=== PATIENT | female | born 1995 | race Caucasian/White ===

== ENCOUNTER 2016-09-14 23:34 | Emergency (ER) | payer OTHER, MEDICAID ==
[2016-09-14 23:45] VITALS: TEMP 97.9
[2016-09-14] MEDS ORDERED: NS 1,000 ML IV ONE (23:46)
[2016-09-14] MEDS ORDERED: HYDROmorphONE/DILAUDID 1 MG/ML SYR IVP ONE (23:58)
--- NOTE | 2016-09-14 23:58 | EDPHY ---
H & P Stated Complaint: RLQ pain + nausea since this afternoon, diarrhea all month - Personal History LMP (Females 10-55): Now Current Tetanus/Diphtheria Vaccine: Unsure Current Tetanus Diphtheria and Acellular Pertussis (TDAP): Unsure - Medical/Surgical History Hx Asthma: Yes Hx Chronic Respiratory Disease: No Hx Diabetes: No Hx Cardiac Disease: No Hx Renal Disease: No Hx Cirrhosis: No Hx Alcoholism: No Hx HIV/AIDS: No Hx Splenectomy or Spleen Trauma: No Other PMH: RA, depression, GERD, migraines w aura, TMJ, panic attacks, anxiety, ovarian cysts - Social History Smoking Status: Never smoked Time Seen by Provider: 09/14/16 23:46 HPI/ROS: Chief complaint: Abdominal pain History of present illness: This is a 21-year-old female who presents to the emergency department for evaluation of abdominal pain. Patient reports pain in the right, lower aspect of her abdomen. It is radiating toward her back. She has had associated nausea without vomiting. Patient has had ongoing problems with abdominal pain for the last few months. She reports having been seen in [facility] multiple times. She states she has been diagnosed with multiple ovarian cysts. This does not feel similar to the cysts she has had in the past. She also reports she has had diarrhea intermittently for the last month. No reported blood in it. She denies precipitating factors. Denies alleviating factors. Denies other associated signs or symptoms. Review of systems: A 10 point review of systems was obtained and other than described above was negative (Ras Lal) - Physical Exam Exam: General Appearance: Alert, no distress. Eyes: Pupils equal and round no pallor or injection. ENT, Mouth: Mucous membranes moist. Respiratory: There are no retractions, lungs are clear to auscultation. Cardiovascular: Regular rate and rhythm. Gastrointestinal: Abdomen is soft and non tender, no masses, bowel sounds normal. Neurological: Alert and oriented. Strength and sensation intact and symmetrical. Skin: Warm and dry, no rashes. Musculoskeletal: Neck is supple non tender. Extremities are symmetrical, full range of motion. Psychiatric: Patient is oriented X 3, there is no agitation. (Ras Lal) Constitutional: Initial Vital Signs Temperature (C) 36.6 C 09/14/16 23:42 Heart Rate 97 09/14/16 23:42 Respiratory Rate 16 09/14/16 23:42 Blood Pressure 102/70 09/14/16 23:42 O2 Sat (%) 97 09/14/16 23:42 O2 Delivery Mode Room Air O2 (L/minute) 2 Allergies/Adverse Reactions: infliximab [From Remicade] Allergy (Verified 09/14/16 23:37) Latex, Natural Rubber Allergy (Verified 09/14/16 23:37) Home Medications: Medication Instructions Recorded ACTEMRA 09/14/16 Baclofen 09/14/16 Diclofenac Sodium 09/14/16 Gabapentin 09/14/16 Hydrocodone Bit/Acetaminophen 09/14/16 Lexapro 09/14/16 Omeprazole 09/14/16 Topamax 09/14/16 Toradol 09/14/16 Wellbutrin Sr 09/14/16 traMADol 09/14/16 traZODone 09/14/16 Medical Decision Making ED Course/Re-evaluation: CT scan of the abdomen pelvis without IV contrast The results of the study are negative for acute inflammatory process specifically normal appendix, no free fluid, no acute intra-abdominal inflammation The study was read by Dr. Mckeon I viewed the images myself on the PACS system. [id number]; re-evaluation at this time this patient is resting comfortably no acute distress, blood work, CT scan reviewed nothing acute visualized on CT scan and blood work is reassuring. Re-examination of her abdomen at this time is soft nontender no guarding or peritoneal signs she is not vomiting. She is agreeable for discharge. She p.o. challenge well. She does understand strict return precautions understands return emergency room if she develops any worsening symptoms this includes abdominal pain, fever, vomiting (Bryce Ziegler) Patient presents to the emergency department for evaluation of abdominal pain. Patient is nontoxic. She is afebrile and vital signs are stable. Physical exam is unremarkable including benign. Care of patient turned over to my attending physician Dr. Bryce Ziegler at end of shift. (Ras Lal) - Data Points Laboratory Results: Laboratory Results 09/15/16 00:40 09/14/16 00:25 Medications Given: Discontinued Medications Hydromorphone HCl (Dilaudid) 1 mg IVP EDNOW ONE Stop: 09/14/16 23:59 Last Admin: 09/15/16 00:45 Dose: 1 mg Sodium Chloride (Ns) 1,000 mls @ 0 mls/hr IV ONCE ONE PRN Reason: Wide Open Stop: 09/14/16 23:47 Last Admin: 09/15/16 00:48 Dose: 1,000 mls Departure - Departure Disposition: Home, Routine, Self-Care Clinical Impression: Abdominal pain Condition: Good Instructions: Acute Abdominal Pain (ED) Additional Instructions: 1.Stay well-hydrated. 2. eat a bland diet for the next 24-48 hours. 3.Return to the emergency room if he develops any worsening symptoms includes worsening abdominal pain, fever, vomiting. 4. your CT scan this evening is normal. your blood work is normal. Referrals: Brianna Ledbetter PA [Primary Care Provider] - As per Instructions
[2016-09-15 00:47] LABS: COLOR PALE YELLOW; LEUKOCYTE ESTERASE,URINE NEGATIVE (NEGATIVE); NITRITE,URINE NEGATIVE (NEGATIVE)
[2016-09-15 01:21] LABS: BHCG-QUALITATIVE NEGATIVE; MONO TEST NEGATIVE (NEGATIVE)
[2016-09-15 01:31] LABS: % IMMATURE GRANULYOCYTES 0.2 % (0.0-1.1); ABSOLUTE IMMATURE GRANULOCYTES 0.01 10^3/uL (0.00-0.10); ADD DIFF? NO; ADD MORPH? NO; ADD SCAN? NO; ATYPICAL LYMPHOCYTE FLAG 20 (0-99); FRAGMENT RBC FLAG 0 (0-99); HEMATOCRIT 38.4 % (38.0-47.0); HEMOGLOBIN 13.3 g/dL (12.6-16.3); LEFT SHIFT FLG 0 (0-99); LIPEMIA HEMOLYSIS FLAG 90 (0-99); MEAN CELL HEMOGLOBIN 30.6 pg (27.9-34.1); MEAN CELL HEMOGLOBIN CONCENTR. 34.6 g/dL (32.4-36.7); MEAN CELL VOLUME 88.3 fL (81.5-99.8); MEAN PLATELET VOLUME 9.4 fL (8.7-11.7); PLATELET CLUMPS FLAG 10 (0-99); PLATELET COUNT 252 10^3/uL (150-400); RED BLOOD CELL COUNT 4.35 10^6/uL (4.18-5.33); RED CELL DISTRIBUTION WIDTH 11.8 % (11.5-15.2)
[2016-09-15 01:50] LABS: ALANINE AMINOTRANSFERASE 38 IU/L (9-52); ALBUMIN 4.1 g/dL (3.5-5.0); ALKALINE PHOSPHATASE 51 IU/L (38-126); ANION GAP 12 mEq/L (8-16); ASPARTATE AMINOTRANSFERASE 23 IU/L (14-46); BILIRUBIN,TOTAL 0.4 mg/dL (0.1-1.4); BILIRUBIN-CONJUGATED 0.2 mg/dL (0.0-0.5); BILIRUBIN-UNCONJUGATED 0.2 mg/dL (0.0-1.1); CALCIUM 9.5 mg/dL (8.5-10.4); CARBON DIOXIDE 18 mEq/l (22-31); CHLORIDE 113 mEq/L (97-110); CREATININE 0.8 mg/dL (0.6-1.0); GLOMERULAR FILTRATION RATE > 60; GLUCOSE 83 mg/dL (70-100); POTASSIUM 4.3 mEq/L (3.5-5.2); SODIUM 143 mEq/L (134-144); TOTAL PROTEIN 6.9 g/dL (6.3-8.2)
[2016-09-15 02:50] VITALS: BP 125/70; PULSE 72; RESP 18; O2SAT 94
--- NOTE | 2016-09-15 14:32 | CT ---
CT Scan of the Urinary Tract (Abdomen and Pelvis Without Contrast) September 15, 2016 Indication: Right flank pain. Technique: Multidetector helical CT imaging was performed from the kidneys to the urinary bladder wi thout contrast. Dose reduction techniques were utilized. Findings: Normal kidneys. No hydronephrosis, nephrolithiasis, hydroureter, or ureteral calculi. The u rinary bladder is normal. The uterus and ovaries are normal. No free fluid or ovarian cyst. The appendix is well visualized and normal. Normal bowel pattern. No obstruction or adynamic ileus. No pneumoperitoneum, lymphadenopathy, or mass. The noncontrast liver, spleen, pancreas, gallbladder, adrenal glands, and abdominal aorta are normal. Lung bases are clear. No bone lesions. Impression: 1. Normal appendix. 2. No hydroureteronephrosis, nephrolithiasis, or ureteral calculi. 3. No evidence of ovarian cyst or free fluid. The study was performed as an emergency on-call case and discussed by telephone with Dr. Bryce yu at 2:30 a.m. The final interpretation is concordant with the original communication. Attention: This CT examination is specifically designed to evaluate patients who are clinically susp ected of having acute obstructive uropathy. This examination does not use radiographic contrast, and as such, provides only a limited evaluation of the abdomen, pelvis, and retroperitoneum. If there is further clinical suspicion for pathological conditions other than obstructive uropathy, a complete CT evaluation of the abdomen and pelvis utilizing intravenous, oral, and rectal contrast should be c onsidered.
== END 2016-09-15 02:50 | disposition home or self-care (01) ==
DX: R10.31 Right lower quadrant pain (principal); J45.909 Unspecified asthma, uncomplicated; Z91.040 Latex allergy status
CPT/HCPCS: 96374; J1170

== ENCOUNTER 2016-11-10 16:17 | Observation (INO) | payer OTHER, MEDICAID ==
--- NOTE | 2016-11-10 16:45 | EDPHY ---
H & P Time Seen by Provider: 11/10/16 16:37 HPI/ROS: CHIEF COMPLAINT: Right upper quadrant pain HISTORY OF PRESENT ILLNESS: The patient is a 21 year old female with rheumatoid arthritis presenting with ongoing right upper quadrant pain. The patient has had right upper quadrant discomfort for the past 3 months. She recently had a HIDA scan that demonstrated a non-functioning gallbladder. She is scheduled to have a cholecystectomy in 3 days. Over the past 24 hours she has not been able to eat or drink due to the pain. She has associated nausea, no vomiting or fever. The patient usually takes hydrocodone for pain. REVIEW OF SYSTEMS: A comprehensive 10 point review of systems is otherwise negative aside from elements mentioned in the history of present illness. Past Medical/Surgical History: RA, migraines, depression, GERD, TMJ, Anxiety, Ovarian cysts. Social History: Parents at bedside. Smoking Status: Never smoked Physical Exam: General Appearance: Alert, depressed Eyes: Pupils equal and round, no conjunctival pallor ENT, Mouth: Mucous membranes moist Neck: Normal inspection Respiratory: Lungs are clear to auscultation Cardiovascular: Regular rate and rhythm Gastrointestinal: Soft, Right upper quadrant tenderness Neurological: A&O, nonfocal exam Skin: Warm and dry, no rash Extremities: Nontender, no pedal edema Psychiatric: Flat affect. Depressed mood. Constitutional: Initial Vital Signs Temperature (C) 36.6 C 11/10/16 16:21 Heart Rate 95 11/10/16 16:21 Respiratory Rate 18 11/10/16 16:21 Blood Pressure 95/69 L 11/10/16 16:21 O2 Sat (%) 95 11/10/16 16:21 O2 Delivery Mode Room Air Allergies/Adverse Reactions: infliximab [From Remicade] Allergy (Verified 11/10/16 16:20) Latex, Natural Rubber Allergy (Verified 11/10/16 16:20) Home Medications: Medication Instructions Recorded Baclofen [Baclofen 10 mg (*)] 10 mg PO HS 11/10/16 Bupropion HCl [Wellbutrin Xl] 300 mg PO HS 11/10/16 Diclofenac Sodium [Voltaren 75 MG 75 mg PO HS 11/10/16 (*)] Escitalopram Oxalate [Lexapro] 30 mg PO HS 11/10/16 Gabapentin [Neurontin 300 MG (*)] 300 mg PO BID 11/10/16 Hydrocodone/Acetaminophen [[place] 1 each PO Q6 PRN 11/10/16 5/325 (*)] Omeprazole 40 mg PO HS 11/10/16 Ranitidine HCl [Zantac] 300 mg PO HS 11/10/16 Topiramate [Topiramate] 100 mg PO HS 11/10/16 traMADol [Ultram 50 mg (*)] 50 - 100 mg PO Q6 PRN 11/10/16 traZODone [traZODONE 100MG (*)] 100 - 200 mg PO HS 11/10/16 Medical Decision Making ED Course/Re-evaluation: This patient presents worsening right upper quadrant pain and prior diagnosis of biliary colic. I reviewed her past medical record. IV was established. The patient received Dilaudid, Zofran, and fluids. 1730: I reassessed the patient. She is feeling improved. Abdominal exam is unchanged. 1830: I reassessed the patient. She is now crying in pain. Abdominal exam unchanged. Plan to admit for abdominal pain. 184: I consulted with Dr. Mcdowell who will consult on the patient. 0: Dr. Rhodes, Hospitalist, accepts the patient for admission. 2009: Dr. Mcdowell saw the patient in the ED. NPO after midnight. Will reassess in the morning. Differential Diagnosis: Differential diagnosis includes though it is not limited to appendicitis, cholecystitis, diverticulitis, pyelonephritis, bowel perforation, small bowel obstruction. - Data Points Laboratory Results: Laboratory Results 11/10/16 16:55 11/10/16 16:55 11/10/16 11/10/16 11/10/16 16:55 16:55 16:55 WBC 3.66 10^3/uL L 10^3/uL (3.80-9.50) RBC 4.51 10^6/uL 10^6/uL (4.18-5.33) Hgb 13.5 g/dL g/dL (12.6-16.3) Hct 39.6 % % (38.0-47.0) MCV 87.8 fL fL (81.5-99.8) MCH 29.9 pg pg (27.9-34.1) MCHC 34.1 g/dL g/dL (32.4-36.7) RDW 11.9 % % (11.5-15.2) Plt Count 267 10^3/uL 10^3/uL (150-400) MPV 9.7 fL fL (8.7-11.7) Neut % (Auto) 38.2 % L % (39.3-74.2) Lymph % (Auto) 48.1 % H % (15.0-45.0) [place]cock % (Auto) 10.4 % % (4.5-13.0) Eos % (Auto) 1.9 % % (0.6-7.6) Baso % (Auto) 1.1 % % (0.3-1.7) Nucleat RBC Rel Count 0.0 % % (0.0-0.2) Absolute Neuts (auto) 1.40 10^3/uL L 10^3/uL (1.70-6.50) Absolute Lymphs (auto) 1.76 10^3/uL 10^3/uL (1.00-3.00) Absolute Monos (auto) 0.38 10^3/uL 10^3/uL (0.30-0.80) Absolute Eos (auto) 0.07 10^3/uL 10^3/uL (0.03-0.40) Absolute Basos (auto) 0.04 10^3/uL 10^3/uL (0.02-0.10) Absolute Nucleated RBC 0.00 10^3/uL 10^3/uL (0-0.01) Immature Gran % 0.3 % % (0.0-1.1) Immature Gran # 0.01 10^3/uL 10^3/uL (0.00-0.10) Sodium 140 mEq/L mEq/L (134-144) Potassium 4.1 mEq/L mEq/L (3.5-5.2) Chloride 114 mEq/L H mEq/L (97-110) Carbon Dioxide 18 mEq/l L mEq/l (22-31) Anion Gap 8 mEq/L mEq/L (8-16) BUN 8 mg/dL mg/dL (7-23) Creatinine 0.8 mg/dL mg/dL (0.6-1.0) Estimated GFR > 60 Glucose 93 mg/dL mg/dL (70-100) Calcium 9.4 mg/dL mg/dL (8.5-10.4) Total Bilirubin 0.4 mg/dL mg/dL (0.1-1.4) Conjugated Bilirubin 0.3 mg/dL mg/dL (0.0-0.5) Unconjugated Bilirubin 0.1 mg/dL mg/dL (0.0-1.1) AST 18 IU/L IU/L (14-46) ALT 41 IU/L IU/L (9-52) Alkaline Phosphatase 50 IU/L IU/L (38-126) Total Protein 7.0 g/dL g/dL (6.3-8.2) Albumin 4.3 g/dL g/dL (3.5-5.0) Lipase 455.0 IU/L H IU/L (23-300) Beta HCG, Qual NEGATIVE Medications Given: Discontinued Medications Hydromorphone HCl (Dilaudid) 0.5 mg IVP EDNOW ONE Stop: 11/10/16 16:48 Last Admin: 11/10/16 17:06 Dose: 0.5 mg Hydromorphone HCl (Dilaudid) 0.5 mg IVP EDNOW ONE Stop: 11/10/16 18:29 Last Admin: 11/10/16 18:47 Dose: 0.5 mg Sodium Chloride (Ns) 1,000 mls @ 0 mls/hr IV ONCE ONE PRN Reason: Wide Open Stop: 11/10/16 16:48 Last Admin: 11/10/16 16:58 Dose: 1,000 mls Sodium Chloride (Ns) 1,000 mls @ 0 mls/hr IV ONCE ONE PRN Reason: Wide Open Stop: 11/10/16 16:49 Last Admin: 11/10/16 17:06 Dose: 1,000 mls Ondansetron HCl (Zofran) 4 mg IVP EDNOW ONE Stop: 11/10/16 16:48 Last Admin: 11/10/16 17:06 Dose: 4 mg Departure - Departure Disposition: [facility] Clinical Impression: Abdominal pain Qualifiers: Abdominal location: right lower quadrant Qualified Code(s): R10.31 - Right lower quadrant pain Condition: Good Report Scribed for: Sharda Mcdermott Report Scribed by: Sydni Osborne Date of Report: 11/10/16 Time of Report: 16:45 Physician Review and Approval Statement: 11/10/16 16:45 Portions of this note were transcribed by a medical sociologist. I personally performed the history, physical exam, and medical decision-making; and confirmed the accuracy of the information in the transcribed note.
[2016-11-10] MEDS ORDERED: HYDROmorphONE/DILAUDID 1 MG/ML SYR IVP ONE ×2 (16:47→18:28)
[2016-11-10] MEDS ORDERED: ONDANSETRON 4 MG/2 ML VIAL IVP ONE (16:47)
[2016-11-10] MEDS ORDERED: NS 1,000 ML IV ONE ×2 (16:47→16:48)
[2016-11-10 17:08] LABS: % IMMATURE GRANULYOCYTES 0.3 % (0.0-1.1); ABSOLUTE IMMATURE GRANULOCYTES 0.01 10^3/uL (0.00-0.10); ADD DIFF? NO; ADD MORPH? NO; ADD SCAN? NO; ATYPICAL LYMPHOCYTE FLAG 10 (0-99); FRAGMENT RBC FLAG 0 (0-99); HEMATOCRIT 39.6 % (38.0-47.0); HEMOGLOBIN 13.5 g/dL (12.6-16.3); LEFT SHIFT FLG 0 (0-99); LIPEMIA HEMOLYSIS FLAG 90 (0-99); MEAN CELL HEMOGLOBIN 29.9 pg (27.9-34.1); MEAN CELL HEMOGLOBIN CONCENTR. 34.1 g/dL (32.4-36.7); MEAN CELL VOLUME 87.8 fL (81.5-99.8); MEAN PLATELET VOLUME 9.7 fL (8.7-11.7); PLATELET CLUMPS FLAG 10 (0-99); PLATELET COUNT 267 10^3/uL (150-400); RED BLOOD CELL COUNT 4.51 10^6/uL (4.18-5.33); RED CELL DISTRIBUTION WIDTH 11.9 % (11.5-15.2)
[2016-11-10 17:24] LABS: ALANINE AMINOTRANSFERASE 41 IU/L (9-52); ALBUMIN 4.3 g/dL (3.5-5.0); ALKALINE PHOSPHATASE 50 IU/L (38-126); ANION GAP 8 mEq/L (8-16); ASPARTATE AMINOTRANSFERASE 18 IU/L (14-46); BILIRUBIN,TOTAL 0.4 mg/dL (0.1-1.4); BILIRUBIN-CONJUGATED 0.3 mg/dL (0.0-0.5); BILIRUBIN-UNCONJUGATED 0.1 mg/dL (0.0-1.1); CALCIUM 9.4 mg/dL (8.5-10.4); CARBON DIOXIDE 18 mEq/l (22-31); CHLORIDE 114 mEq/L (97-110); CREATININE 0.8 mg/dL (0.6-1.0); GLOMERULAR FILTRATION RATE > 60; GLUCOSE 93 mg/dL (70-100); POTASSIUM 4.1 mEq/L (3.5-5.2); SODIUM 140 mEq/L (134-144)
--- NOTE | 2016-11-10 21:28 | GCON ---
DATE OF CONSULTATION: 11/10/2016 CHIEF COMPLAINT: Abdominal pain. HISTORY OF PRESENT ILLNESS: This is a 21-year-old female with an extensive past medical history. Sam stover, she was evaluated by my partner, Dr. Jacque Terry, in clinic for possible biliary colic versu s cholecystitis. At any rate, the patient was subsequently signed up for surgery this coming . The patient presented to the emergency department stating that ever since her initial consulta tion, she has had low-grade abdominal pain consistent with previous, acutely worsening over the last 48 hours. The patient states that the pain can be all over the place, can be triggered by things s uch as laughing, moving, occasionally food, and that is why she prompted her presentation here today . She states that she has been able to keep down some things. She did eat a normal meal last night , although having little appetite, was able to keep it down. She denies having fevers or chills. E ndorses nausea. States that her pain is right upper quadrant with radiation to the back, occasional ly radiating to the epigastrium, and can be 10/10 in intensity at its worst. She denies having any other symptoms, and on my presentation, has no other complaints. PAST MEDICAL HISTORY: Extensive severe depression, juvenile rheumatoid arthritis. PAST SURGICAL HISTORY: None. CURRENT MEDICATIONS: Please see medical reconciliation for full list. Briefly, the patient takes a long-acting antirheumatic, as she gets infusions for every 4 weeks. ALLERGIES: Infliximab, latex, and natural rubber. REVIEW OF SYSTEMS: A full 10-point review was performed, and unless explicitly stated above, is oth erwise negative. PHYSICAL EXAMINATION: VITAL SIGNS: Temperature 36.6, blood pressure 100/66, heart rate 63, and she is 93% on room air. GENERAL: She is alert, quiet, in no acute distress. CV: She has a regular r ate and rhythm. LUNGS: Clear to auscultation. ABDOMEN: Obese. Minimally tender to palpation in the right upper quadrant without Anne sign. No rebound tenderness or guarding. EXTREMITIES: War m. LABORATORY DATA: White blood cell count is low at 3000, with low absolute neutrophil count at 1.4. Her chemistries are, for the most part, unremarkable, with the exception of an elevated lipase at 4 55. Imaging was not performed, but imaging done previously to now includes a right upper quadrant ultras ound, which is negative for stones, gallbladder wall thickening, pericholecystic fluid, or common bi le duct enlargement. In addition, she had a HIDA scan also performed on an outpatient basis, which showed normal gallblad [place] filling, and excellent ejection fraction at 88%. She did, however, have pain with stimulant inj ection. ASSESSMENT AND PLAN: A 21-year-old female, with extensive past medical history, now presenting with acute worsening abdominal pain. I did discuss my concerns with the patient again today, as they we re previously discussed by my partner, Dr. Terry, in the clinic. I would like to see how she does o vernight, in an effort to get her white blood cell count up to a normal level, which I feel would be helpful for surgery. In addition, I do feel that her mild pancreatitis will resolve with some gent le fluid hydration overnight as well. We will plan to re-evaluate her in the morning. If she aston nues to have fairly severe pain, we will likely plan to expedite her trip to the operating room for a cholecystectomy, and if her pain appears resolved and she does okay, likely hold off for her origi nal surgical date scheduled for Friday, as the original plan and timing was dependent upon her be ing off her long-acting antirheumatic for a significant amount of time, so that she had the capabili ty to heal her surgical site. We will plan to follow along with you. Appreciate medical admission. Thank you very much. /[id number]/MODL
[2016-11-10] MEDS ORDERED: ONDANSETRON DISINTEGRATING 4 MG TAB PO PRN (21:42)
[2016-11-10] MEDS ORDERED: ACETAMINOPHEN 325 MG TAB PO PRN (21:42)
[2016-11-10] MEDS ORDERED: HYDROCODONE/APAP 5/325 TAB PO PRN (21:43)
[2016-11-10] MEDS ORDERED: traMADol 50 MG TAB PO PRN (21:44)
[2016-11-10] MEDS ORDERED: D5W 1/2 NS W/ 20 KCl/L 1,000 ML IV SCH (21:45)
--- NOTE | 2016-11-10 22:15 | GHP ---
DATE OF ADMISSION: 11/10/2016 CHIEF COMPLAINT: Abdominal pain. HISTORY OF PRESENT ILLNESS: This is a 21-year-old female who has been having abdominal pain for the last several months. It is in right upper quadrant. There has been some associated nausea. Not n ecessarily related to meals. She has undergone extensive workup with Gastroenterology including end oscopy, CT scan, and HIDA scan. She did develop pain with the CCK infusion. There was a plan by Dr Carmen Terry to do a laparoscopic cholecystectomy. She does also have a history of rheumatoid arthritis, and there was some talk about how to time surgery. She has been having worsening pain, especially over the last several days, and came to the emergency department. She has not been having any fevers or chills. She has had decreased appetite and p.o. intake. REVIEW OF SYSTEMS: A 10-point review of systems was obtained and other than stated, was negative. PAST MEDICAL HISTORY: 1. Juvenile rheumatoid arthritis the last 11 years. She gets a disease modification infusion once a month. 2. TMJ, and she is actually scheduled for surgery for that at some point. 3. Depression. MEDICATIONS: Reviewed. SOCIAL HISTORY: No smoking or alcohol. Lives with her parents. FAMILY HISTORY: Multiple autoimmune diseases in the family including lupus. Her sister has juvenil e rheumatoid arthritis as well. PHYSICAL EXAMINATION: VITAL SIGNS: Afebrile, blood pressure is 106/77, heart rate 84, oxygen satur ation 96% on room air. GENERAL: The patient is well developed, no apparent distress. HEENT: Kylie cteric sclerae. Extraocular movements intact. Moist mucous membranes. NECK: Supple. No thyromeg rahat. LUNGS: Good effort. Clear to auscultation bilaterally. CARDIOVASCULAR: Regular rate and rh ythm. No murmurs or gallops. ABDOMEN: Positive bowel sounds. Soft. Some mild right upper quadra nt tenderness. No rebound or guarding. EXTREMITIES: No clubbing, cyanosis, or edema. SKIN: With out rash. Warm, dry, intact. NEUROLOGIC: Alert and oriented x3. Moving all 4 extremities equally . PSYCHIATRIC: Normal mood and affect. LABORATORY DATA: White blood cell count is a little low at 3.6, hemoglobin 13, platelets are 267. Sodium 140, potassium 4.1, BUN 8, creatinine 0.8. LFTs are normal. Lipase is slightly elevated at 455. ASSESSMENT AND PLAN: This is a 21-year-old female with a history of abdominal pain thought possibly to be due to biliary colic. She is scheduled for laparoscopic cholecystectomy on Friday. She p resents with worsening abdominal pain. 1. Possible biliary colic. Surgery has seen the patient, and is considering moving up the surgery date. 2. Mild pancreatitis. This could be due to just patient not eating well. We will continue to van tor lipase. 3. Juvenile rheumatoid arthritis. 4. Depression. We will continue medications. 5. Admission. Patient will be admitted under full admission status, as she most likely will get a laparoscopic cholecystectomy done in the hospital. /[id number]/MODL
[2016-11-10] MEDS: HYDROmorphONE/DILAUDID 1 MG/ML SYR IVP PRN (22:44)
[2016-11-11 06:06] LABS: % IMMATURE GRANULYOCYTES 0.2 % (0.0-1.1); ABSOLUTE IMMATURE GRANULOCYTES 0.01 10^3/uL (0.00-0.10); ADD DIFF? NO; ADD MORPH? NO; ADD SCAN? NO; ATYPICAL LYMPHOCYTE FLAG 10 (0-99); FRAGMENT RBC FLAG 0 (0-99); HEMATOCRIT 36.7 % (38.0-47.0); HEMOGLOBIN 12.3 g/dL (12.6-16.3); LEFT SHIFT FLG 0 (0-99); LIPEMIA HEMOLYSIS FLAG 80 (0-99); MEAN CELL HEMOGLOBIN 30.4 pg (27.9-34.1); MEAN CELL HEMOGLOBIN CONCENTR. 33.5 g/dL (32.4-36.7); MEAN CELL VOLUME 90.8 fL (81.5-99.8); PLATELET CLUMPS FLAG 0 (0-99); PLATELET COUNT 231 10^3/uL (150-400); RED BLOOD CELL COUNT 4.04 10^6/uL (4.18-5.33); RED CELL DISTRIBUTION WIDTH 11.9 % (11.5-15.2)
[2016-11-11 06:12] LABS: ANION GAP 7 mEq/L (8-16); CALCIUM 8.4 mg/dL (8.5-10.4); CARBON DIOXIDE 19 mEq/l (22-31); CHLORIDE 116 mEq/L (97-110); CREATININE 0.7 mg/dL (0.6-1.0); GLOMERULAR FILTRATION RATE > 60; GLUCOSE 91 mg/dL (70-100); POTASSIUM 3.7 mEq/L (3.5-5.2); SODIUM 142 mEq/L (134-144)
[2016-11-11] MEDS: ONDANSETRON 4 MG/2 ML VIAL IVP PRN ×2 (08:02→12:05)
[2016-11-11] MEDS: HYDROmorphONE/DILAUDID 1 MG/ML SYR IVP PRN ×2 (08:03→11:08)
[2016-11-11] MEDS ORDERED: OXYCODONE/APAP 5/325 TAB PO PRN (08:23)
--- NOTE | 2016-11-11 08:35 | SOAPPROG ---
SOAP Progress Note Assessment/Plan: Assessment/Plan Cele feels better this AM, she has gotten some pain medications but has had no nausea overnight. Discussed case with Dr Kirti Avendano who once again re- iterated that timing of reba case was important to allow for complete clearing of her anti-rheumatics prior to OR. Given her favorable exam and and Sx this AM would favor feeding with plans for d/c later today so that she can keep her scheduled outpatient lap nolan on . 11/11/16 08:32 Subjective: Feeling a little better, no nausea Objective: Vital Signs Temp Pulse Resp BP Pulse Ox 36.8 C 84 16 111/78 96 11/11/16 07:45 11/11/16 07:45 11/11/16 07:45 11/11/16 07:45 11/11/16 07:45 Laboratory Results 11/11/16 05:05 11/11/16 05:05 11/10/16 11/11/16 11/12/16 05:59 05:59 05:59 Intake Total 3200 Balance 3200 ICD10 Worksheet Patient Problems: Problems Problem Status Onset Abdominal pain Acute
[2016-11-11] MEDS ORDERED: GABAPENTIN 300 MG CAP PO SCH (09:00)
[2016-11-11 12:05] VITALS: BP 83/53; PULSE 93; RESP 18; TEMP 98; O2SAT 93
[2016-11-11] MEDS ORDERED: BACLOFEN 10 MG TAB PO SCH (21:00)
[2016-11-11] MEDS ORDERED: TOPIRAMATE 100 MG TAB PO SCH (21:00)
[2016-11-11] MEDS ORDERED: ESCITALOPRAM OXALATE 10 MG TAB PO SCH (21:00)
[2016-11-11] MEDS ORDERED: traZODone 100 MG TAB PO SCH (21:00)
[2016-11-11] MEDS ORDERED: PANTOPRAZOLE SODIUM 40 MG TAB PO SCH (21:00)
[2016-11-11] MEDS ORDERED: buPROPion XL 150 MG TAB PO SCH (21:00)
[2016-11-11] MEDS ORDERED: FAMOTIDINE 20 MG TAB PO SCH (21:00)
--- NOTE | 2016-11-11 22:13 | GDS ---
DISCHARGE DIAGNOSES: 1. Biliary colic. 2. Juvenile rheumatoid arthritis. 3. Chronic immunosuppression. CONSULTANTS: Dr. Moises Mcdowell, General Surgery. HISTORY: For details, gabe see the history and physical dated November 10, 2016. In brief, the patien maribell is a 21-year-old female with a history of JRA who has experienced right upper quadrant pain for th e past 3 months. She was found to have an abnormal HIDA scan and was scheduled for an elective chol ecystectomy on November 13, 2016. However, she has had increased pain over the past 24 hours, difficult y tolerating oral intake, with associated nausea but no vomiting or fevers. She was admitted to the hospital for further evaluation. HOSPITAL COURSE: The patient was admitted to the medical-surgical unit. She received IV fluids for hydration. She did have a mild elevation of her lipase of 455. Her pain was treated with Percocet . She was able to tolerate regular food without vomiting the following morning. Surgery consult wa s obtained and felt she was safe for discharge home with plan to proceed with her outpatient cholecy stectomy in 2 days. It was preferred to delay her surgery until her scheduled date due to her immun osuppressive therapy which has been on hold in hopes of improving her immune response prior to surge ry. Her white blood cell count was slightly low on arrival, although this normalized the following morning. DISPOSITION: Patient is discharged home in stable condition. FOLLOWUP: Patient has a scheduled elective cholecystectomy on Friday, november 13, 2016, and she lillian l follow up with her primary care provider, Dianna Man, as needed. Follow up for elective chol ecystectomy as I stated, with Dr. Alisha Terry. DISCHARGE MEDICATIONS: Please see [facility] for complete updated outpatient medication list. Contin ue outpatient medications as prescribed. New medications on discharge include Percocet 5/325 one p. o. q.6 hours p.r.n. #10, no refills, and Zofran 4 mg p.o. q.6 hours #20, no refills. /[id number]/MODL
[2016-11-12 22:16] LABS: CELIAC DISEASE INTERPRETATION See Comments; IMMUNOGLOBULIN A CELIAC 220 mg/dL (61 - 356)
== END 2016-11-11 12:55 | disposition home or self-care (01) ==
LOC: F1N 20:42
PROVIDERS: ADMIT Internal Medicine; ATTEND Internal Medicine
DX: K80.50 Calculus of bile duct without cholangitis or cholecystitis without obstruction (principal); M08.00 Unspecified juvenile rheumatoid arthritis of unspecified site; D89.9 Disorder involving the immune mechanism, unspecified; K21.9 Gastro-esophageal reflux disease without esophagitis; F41.9 Anxiety disorder, unspecified; F32.9 Major depressive disorder, single episode, unspecified; Z91.040 Latex allergy status
CPT/HCPCS: G0378 ×2; 82784-90; 83516-90; 96374; J1170; J2405

== ENCOUNTER 2017-07-27 04:45 | Emergency (ER) | payer OTHER, MEDICAID ==
[2017-07-27 04:54] VITALS: RESP 16; TEMP 97.5; O2SAT 96
[2017-07-27] MEDS ORDERED: NS 1,000 ML IV ONE (05:03)
[2017-07-27] MEDS ORDERED: HYDROmorphONE/DILAUDID 1 MG/ML INJ IVP ONE (05:03)
[2017-07-27] MEDS ORDERED: ONDANSETRON 4 MG/2 ML VIAL IVP ONE (05:03)
--- NOTE | 2017-07-27 05:03 | EDPHY ---
H & P Stated Complaint: c/o bilat upper abd pain radiating into the back, more on R side, n/d HPI/ROS: HPI CHIEF COMPLAINT: Abdominal pain, nausea, diarrhea HISTORY OF PRESENT ILLNESS: This patient is a 21-year-old female, she does have significant medical history of juvenile rheumatoid arthritis, anxiety, depression, recent gallbladder surgery, as well as jaw surgery she presents emergency room at 5 o'clock in the morning with abdominal pain nausea and diarrhea. Patient reports around noon yesterday she woke up not feeling well with some abdominal pain it was really located in her epigastric region. She did not feel almost today yesterday tonight she had nausea with watery diarrhea nonbloody. Additionally she reports the abdominal pain got worse across her mid abdomen and now is most tender in the right lower quadrant. She denies any fever but does state she had some night sweats. She distally reports that she had some right shoulder pain musculoskeletal nature. Worse with movement. Past Medical History: Juvenile rheumatoid arthritis, anxiety, depression, ovarian cyst, panic attacks, GERD Past Surgical History: Cholecystectomy, jaw surgery Social History: Denies daily use drugs alcohol tobacco products. Family History: Noncontributory ROS REVIEW OF SYSTEMS: A comprehensive 10 point review of systems is otherwise negative aside from elements mentioned in the history of present illness. Exam Constitutional appears nontoxic, triage nursing summary reviewed, vital signs reviewed, awake/alert. Eyes normal conjunctivae and sclera, EOMI, PERRLA. HENT normal inspection, atraumatic, moist mucus membranes, no epistaxis, neck supple/ no meningismus, no raccoon eyes. Respiratory clear to auscultation bilaterally, normal breath sounds, no respiratory distress, no wheezing. Cardiovascular rate normal, regular rhythm, no murmur, no edema, distal pulses normal. Gastrointestinal tender palpation in the right lower quadrant, reproducible on exam, no peritoneal signs no rebound, no guarding, normal bowel sounds, no distension, no pulsatile mass. Genitourinary no CVA tenderness. Musculoskeletal no midline vertebral tenderness, full range of motion, no calf swelling, no tenderness of extremities, no meningismus, good pulses, neurovascularly intact. Skin pink, warm, & dry, no rash, skin atraumatic. Neurologic awake, alert and oriented x 3, AAOx3, moves all 4 extremities equally, motor intact, sensory intact, CN II-XII intact, normal cerebellar, normal vision, normal speech. Psychiatric normal mood/affect. Heme/Lymph/Immune no lymphadenopathy. Differential diagnosis includes but is not limited to and in no particular order : Bowel obstruction, appendicitis, diverticulitis, colitis, enteritis, perforated viscus, gastritis, GERD, esophagitis, urinary tract infection, pyelonephritis, kidney stones Medical Decision Making: Plan for this patient IV established with IV fluid bolus, 0.5 mg IV Dilaudid for pain control, 4 mg IV Zofran for nausea. Check blood work including abdominal labs, EKG, chest x-ray, CT abdomen pelvis with IV contrast given her reproducible right lower quadrant pain rule out acute appendicitis. Re-evaluation: Of note this patient is on immunosuppressant ACTEMRA for KATHIA. EKG interpretation by me on record in [employer] system. Impression time of EKG 5:27 a.m., sinus rhythm rate of 86. Unremarkable EKG. No acute ischemia. 0658: CT scan of the abdomen pelvis with IV contrast shows no acute inflammatory process. Dr. Queen called me about the CT. He is able to see most of the appendix but cannot see the proximal part where it attached to the cecum. However there is no right lower quadrant inflammatory changes. There is no free fluid. Her otherwise her CT scan is unremarkable. 0659: I discussed at length about this patient's CT scan. She remains comfortable. No vomiting here. Her pain is well controlled. I did reexamine her abdomen is soft nontender. At this time and does not appear that she has acute inflammatory process her she has no fever here. Her white count is not elevated her CT scan does not show acute inflammation. Patient is on immunosuppressants. However she appears well here nontoxic. I have given her return precautions she understands return emergency room she develops worsening abdominal pain fever or vomiting. We discussed this at length. She feels comfortable going home. Father at bedside. Source: Patient - Medical/Surgical History Hx Asthma: Yes Hx Chronic Respiratory Disease: No Hx Diabetes: No Hx Cardiac Disease: No Hx Renal Disease: No Hx Cirrhosis: No Hx Alcoholism: No Hx HIV/AIDS: No Hx Splenectomy or Spleen Trauma: No Other PMH: RA, depression, GERD, migraines w aura, TMD, exercise induced asthma , panic attacks, anxiety, ovarian cysts, cholecystectomy, mandible surg, cynovial cyst removed R wrist, nasal surg - Social History Smoking Status: Never smoked Constitutional: Initial Vital Signs Temperature (C) 36.4 C 07/27/17 04:49 Heart Rate 92 07/27/17 04:49 Respiratory Rate 16 07/27/17 04:49 Blood Pressure 120/81 H 07/27/17 04:49 O2 Sat (%) 96 07/27/17 04:49 O2 Delivery Mode Room Air Allergies/Adverse Reactions: cephalexin [From Keflex] Allergy (Verified 07/27/17 04:54) infliximab [From Remicade] Allergy (Verified 07/27/17 04:54) Latex, Natural Rubber Allergy (Verified 07/27/17 04:54) Home Medications: Medication Instructions Recorded Bupropion HCl [Wellbutrin Xl] 300 mg PO HS 11/10/16 Escitalopram Oxalate [Lexapro] 30 mg PO HS 11/10/16 Omeprazole 40 mg PO HS 11/10/16 Topiramate 100 mg PO HS 11/10/16 traZODone [traZODONE 100MG (*)] 100 - 200 mg PO HS 11/10/16 Ondansetron Odt [Zofran Odt 4 mg 4 mg PO Q6H PRN #20 tab 11/11/16 (*)] ACTEMRA 07/27/17 Clonidine 07/27/17 LYRICA 07/27/17 Rizatriptan 07/27/17 Toradol 07/27/17 Xylocaine 07/27/17 Zanaflex 07/27/17 Medical Decision Making - Data Points Laboratory Results: Laboratory Results 07/27/17 05:30 07/27/17 05:30 07/27/17 07/27/17 07/27/17 05:30 05:30 05:30 WBC RBC Hgb Hct MCV MCH MCHC RDW Plt Count MPV Neut % (Auto) Lymph % (Auto) [place] % (Auto) Eos % (Auto) Baso % (Auto) Nucleat RBC Rel Count Absolute Neuts (auto) Absolute Lymphs (auto) Absolute Monos (auto) Absolute Eos (auto) Absolute Basos (auto) Absolute Nucleated RBC Immature Gran % Immature Gran # VBG Lactic Acid 1.3 mmol/L mmol/L (0.7-2.1) Sodium 142 mEq/L mEq/L (134-144) Potassium 3.7 mEq/L mEq/L (3.5-5.2) Chloride 109 mEq/L mEq/L (97-110) Carbon Dioxide 19 mEq/l L mEq/l (22-31) Anion Gap 14 mEq/L mEq/L (8-16) BUN 10 mg/dL mg/dL (7-23) Creatinine 0.9 mg/dL mg/dL (0.6-1.0) Estimated GFR > 60 Glucose 93 mg/dL mg/dL (70-100) Calcium 9.2 mg/dL mg/dL (8.5-10.4) Total Bilirubin 0.6 mg/dL mg/dL (0.1-1.4) Conjugated Bilirubin 0.1 mg/dL mg/dL (0.0-0.5) Unconjugated Bilirubin 0.5 mg/dL mg/dL (0.0-1.1) AST 28 IU/L IU/L (14-46) ALT 49 IU/L IU/L (9-52) Alkaline Phosphatase 73 IU/L IU/L (38-126) Total Protein 6.8 g/dL g/dL (6.3-8.2) Albumin 4.2 g/dL g/dL (3.5-5.0) Lipase 198 IU/L IU/L (23-300) Beta HCG, Qual NEGATIVE 07/27/17 05:30 WBC 5.99 10^3/uL 10^3/uL (3.80-9.50) RBC 5.11 10^6/uL 10^6/uL (4.18-5.33) Hgb 14.7 g/dL g/dL (12.6-16.3) Hct 43.7 % % (38.0-47.0) MCV 85.5 fL fL (81.5-99.8) MCH 28.8 pg pg (27.9-34.1) MCHC 33.6 g/dL g/dL (32.4-36.7) RDW 13.2 % % (11.5-15.2) Plt Count 329 10^3/uL 10^3/uL (150-400) MPV 9.3 fL fL (8.7-11.7) Neut % (Auto) 70.3 % % (39.3-74.2) Lymph % (Auto) 20.2 % % (15.0-45.0) [place] % (Auto) 7.8 % % (4.5-13.0) Eos % (Auto) 0.7 % % (0.6-7.6) Baso % (Auto) 0.7 % % (0.3-1.7) Nucleat RBC Rel Count 0.0 % % (0.0-0.2) Absolute Neuts (auto) 4.21 10^3/uL 10^3/uL (1.70-6.50) Absolute Lymphs (auto) 1.21 10^3/uL 10^3/uL (1.00-3.00) Absolute Monos (auto) 0.47 10^3/uL 10^3/uL (0.30-0.80) Absolute Eos (auto) 0.04 10^3/uL 10^3/uL (0.03-0.40) Absolute Basos (auto) 0.04 10^3/uL 10^3/uL (0.02-0.10) Absolute Nucleated RBC 0.00 10^3/uL 10^3/uL (0-0.01) Immature Gran % 0.3 % % (0.0-1.1) Immature Gran # 0.02 10^3/uL 10^3/uL (0.00-0.10) VBG Lactic Acid Sodium Potassium Chloride Carbon Dioxide Anion Gap BUN Creatinine Estimated GFR Glucose Calcium Total Bilirubin Conjugated Bilirubin Unconjugated Bilirubin AST ALT Alkaline Phosphatase Total Protein Albumin Lipase Beta HCG, Qual Medications Given: Discontinued Medications Diphenhydramine HCl (Benadryl Injection) 25 mg IVP EDNOW ONE Stop: 07/27/17 06:13 Last Admin: 07/27/17 06:15 Dose: Not Given Diphenhydramine HCl (Benadryl Injection) 25 mg IVP EDNOW ONE Stop: 07/27/17 06:14 Last Admin: 07/27/17 06:17 Dose: 25 mg Hydromorphone HCl (Dilaudid) 0.5 mg IVP EDNOW ONE Stop: 07/27/17 05:04 Last Admin: 07/27/17 05:25 Dose: 0.5 mg Sodium Chloride (Ns) 1,000 mls @ 0 mls/hr IV EDNOW ONE; Wide Open PRN Reason: Protocol Stop: 07/27/17 05:04 Last Admin: 07/27/17 05:25 Dose: 1,000 mls Ondansetron HCl (Zofran) 4 mg IVP EDNOW ONE Stop: 07/27/17 05:04 Last Admin: 07/27/17 05:26 Dose: 4 mg Departure - Departure Disposition: Home, Routine, Self-Care Clinical Impression: Abdominal pain Qualifiers: Abdominal location: unspecified location Qualified Code(s): R10.9 - Unspecified abdominal pain Condition: Good Instructions: Abdominal Pain (ED) Additional Instructions: 1. Routt diet next 24-48 hours. 2. No spicy fatty greasy foods. 3. Return to the emergency room if you have worsening abdominal pain fever or vomiting. Referrals: Jacque Barry PA [Primary Care Provider] - As per Instructions
[2017-07-27] MEDS ORDERED: IOPAMIDOL (ISOVUE-300) 100 ML BTL ONE (05:17)
--- NOTE | 2017-07-27 05:22 | CPEKG ---
Heart Rate: 83 RR Interval: 723 P-R Interval: 156 QRSD Interval: 82 QT Interval: 372 QTC Interval: 437 P [place]: 21 QRS [place]: 74 T Wave [place]: 36 EKG Severity - NORMAL ECG - EKG Impression: INCOMPLETE ANALYSIS DUE TO MISSING DATA IN PRECORDIAL LEAD(S) EKG Impression: SINUS RHYTHM Electronically Signed By: Bryce Ziegler 27-Jul-2017 07:06:24
[2017-07-27 05:52] LABS: % IMMATURE GRANULYOCYTES 0.3 % (0.0-1.1); ABSOLUTE IMMATURE GRANULOCYTES 0.02 10^3/uL (0.00-0.10); ADD DIFF? NO; ADD MORPH? NO; ADD SCAN? NO; ATYPICAL LYMPHOCYTE FLAG 20 (0-99); FRAGMENT RBC FLAG 0 (0-99); HEMATOCRIT 43.7 % (38.0-47.0); HEMOGLOBIN 14.7 g/dL (12.6-16.3); LEFT SHIFT FLG 0 (0-99); LIPEMIA HEMOLYSIS FLAG 80 (0-99); MEAN CELL HEMOGLOBIN 28.8 pg (27.9-34.1); MEAN CELL HEMOGLOBIN CONCENTR. 33.6 g/dL (32.4-36.7); MEAN CELL VOLUME 85.5 fL (81.5-99.8); MEAN PLATELET VOLUME 9.3 fL (8.7-11.7); PLATELET CLUMPS FLAG 0 (0-99); PLATELET COUNT 329 10^3/uL (150-400); RED BLOOD CELL COUNT 5.11 10^6/uL (4.18-5.33); RED CELL DISTRIBUTION WIDTH 13.2 % (11.5-15.2)
[2017-07-27 06:04] LABS: ALANINE AMINOTRANSFERASE 49 IU/L (9-52); ALBUMIN 4.2 g/dL (3.5-5.0); ALKALINE PHOSPHATASE 73 IU/L (38-126); ANION GAP 14 mEq/L (8-16); ASPARTATE AMINOTRANSFERASE 28 IU/L (14-46); BILIRUBIN,TOTAL 0.6 mg/dL (0.1-1.4); BILIRUBIN-CONJUGATED 0.1 mg/dL (0.0-0.5); BILIRUBIN-UNCONJUGATED 0.5 mg/dL (0.0-1.1); CALCIUM 9.2 mg/dL (8.5-10.4); CARBON DIOXIDE 19 mEq/l (22-31); CHLORIDE 109 mEq/L (97-110); CREATININE 0.9 mg/dL (0.6-1.0); GLOMERULAR FILTRATION RATE > 60; GLUCOSE 93 mg/dL (70-100); POTASSIUM 3.7 mEq/L (3.5-5.2); SODIUM 142 mEq/L (134-144); TOTAL PROTEIN 6.8 g/dL (6.3-8.2)
[2017-07-27 07:38] LABS: COLOR YELLOW; LEUKOCYTE ESTERASE,URINE TRACE (NEGATIVE); NITRITE,URINE NEGATIVE (NEGATIVE)
[2017-07-27 08:16] LABS: MUCUS TRACE /lpf (NONE-1+)
[2017-07-27 08:27] VITALS: BP 139/89; PULSE 80
--- NOTE | 2017-07-28 15:47 | CPEKG ---
Heart Rate: 86 RR Interval: 698 P-R Interval: 164 QRSD Interval: 86 QT Interval: 380 QTC Interval: 455 P Fleischmann[place]: 1 QRS [place]: 85 T Wave [place]: 26 EKG Severity - NORMAL ECG - EKG Impression: SINUS RHYTHM Electronically Signed For: Dinesh Boles 28-Jul-2017 15:51:29
== END 2017-07-27 08:27 | disposition home or self-care (01) ==
PROC: 3E0337Z Introduction of Electrolytic and Water Balance Substance into Peripheral Vein, Percutaneous Approach (ICD-10-PCS; principal; 2017-07-27)
DX: R10.31 Right lower quadrant pain (principal); J45.909 Unspecified asthma, uncomplicated; E86.9 Volume depletion, unspecified; Z90.49 Acquired absence of other specified parts of digestive tract; Z91.040 Latex allergy status
CPT/HCPCS: 96374; J1170; J1200; J2405; Q9967

== ENCOUNTER 2018-02-19 14:27 | Emergency (ER) | payer OTHER, MEDICAID ==
[2018-02-19] MEDS ORDERED: NS 1,000 ML IV ONE ×2 (15:23)
--- NOTE | 2018-02-19 15:23 | EDPHY ---
H & P Time Seen by Provider: 02/19/18 15:04 HPI/ROS: Chief complaint. Feels dehydrated and weak HPI. Patient is 22 year old female presents with above symptoms. She tells me she was at the right the on Friday sitting in the sun. She sunburn. Since then she has she has had a headache groggy dizzy and nauseated. No vomiting. She is able to drink fluids. No abdominal pain. Chest discomfort or trouble breathing. No fever or upper respiratory symptoms. No focal weakness or paresthesias. She does have a history of migraines and this headache is typical ROS Constitutional. Weakness Eyes. no problems with vision ENT. no sore throat, no nasal drainage Cardiovascular. no chest pain Respiratory. no shortness of breath, no cough Abdominal. Nausea . no problems urinating MS. no calf pain/swelling, no neck/back pain, no joint pain Skin. no rash Lymph. no swollen glands Neuro. Headache Past Medical/Surgical History: Past medical history significant for depression, rheumatoid arthritis, GERD, migraines, asthma, panic attacks and anxiety, ovarian cyst, cholecystectomy Social History: Single, nonsmoker, no alcohol Smoking Status: Never smoked Physical Exam: General Appearance: Alert well-developed female mild distress vital signs are stable Eyes: Pupils equal and round no pallor or injection. ENT, mucous membranes are dry. Pharynx without injection Respiratory: There are no retractions, lungs are clear to auscultation. Cardiovascular: Regular rate and rhythm. Gastrointestinal: Abdomen is soft and nontender, no masses, bowel sounds normal. Neurological: Awake and alert, sensory and motor exams grossly normal. Skin: Warm and dry, no rashes. Musculoskeletal: Neck is supple nontender. Extremities symmetrical, full range of motion. Psychiatric: Patient is oriented X 3, there is no agitation. Constitutional: Initial Vital Signs Temperature (C) 36.6 C 02/19/18 14:34 Heart Rate 88 02/19/18 14:34 Respiratory Rate 18 02/19/18 14:34 Blood Pressure 101/70 02/19/18 14:34 O2 Sat (%) 97 02/19/18 14:34 O2 Delivery Mode Room Air Allergies/Adverse Reactions: cephalexin [From Keflex] Allergy (Verified 02/19/18 14:31) infliximab [From Remicade] Allergy (Verified 02/19/18 14:31) Latex, Natural Rubber Allergy (Verified 02/19/18 14:31) Home Medications: Medication Instructions Recorded Bupropion HCl [Wellbutrin Xl] 300 mg PO HS 11/10/16 Escitalopram Oxalate [Lexapro] 30 mg PO HS 11/10/16 Omeprazole 40 mg PO HS 11/10/16 Topiramate 100 mg PO HS 11/10/16 traZODone [traZODONE 100MG (*)] 100 - 200 mg PO HS 11/10/16 Ondansetron Odt [Zofran Odt 4 mg 4 mg PO Q6H PRN #20 tab 11/11/16 (*)] ACTEMRA 07/27/17 Clonidine 07/27/17 LYRICA 07/27/17 Toradol 07/27/17 Xylocaine 07/27/17 Zanaflex 07/27/17 Clonidine 02/19/18 Escitalopram Oxalate 02/19/18 LYRICA 02/19/18 Levono-E Estrad 0.10-0.02-0.01 02/19/18 Promethazine HCl [Phenergan 25mg 25 mg PO Q4-6PRN PRN #10 tab 02/19/18 (*)] Medical Decision Making Procedures: IV normal saline ED Course/Re-evaluation: Re-evaluation at 4:15 p.m.. Patient is stable. Feeling a little better Re-evaluation 6:20 p.m. She has had 2 L. She is feeling better. Headache is improved. Her mom is here With her. Patient, mom and I discussed laboratory evaluation, treatment plan including criteria for return importance of follow-up and further evaluation. They expressed understanding and agreement Differential Diagnosis: Apparent intolerance to heat and significant heat exposure few days ago when it was hot sit in the sun. I have considered electrolyte abnormalities, infection , dehydration - Data Points Laboratory Results: Laboratory Results 02/19/18 15:25 02/19/18 15:25 02/19/18 02/19/18 02/19/18 15:25 15:25 15:25 WBC 6.04 10^3/uL 10^3/uL (3.80-9.50) RBC 4.67 10^6/uL 10^6/uL (4.18-5.33) Hgb 12.9 g/dL g/dL (12.6-16.3) Hct 40.1 % % (38.0-47.0) MCV 85.9 fL fL (81.5-99.8) MCH 27.6 pg L pg (27.9-34.1) MCHC 32.2 g/dL L g/dL (32.4-36.7) RDW 13.5 % % (11.5-15.2) Plt Count 383 10^3/uL 10^3/uL (150-400) MPV 9.4 fL fL (8.7-11.7) Neut % (Auto) 39.2 % L % (39.3-74.2) Lymph % (Auto) 50.7 % H % (15.0-45.0) [place] % (Auto) 7.9 % % (4.5-13.0) Eos % (Auto) 1.2 % % (0.6-7.6) Baso % (Auto) 0.8 % % (0.3-1.7) Nucleat RBC Rel Count 0.0 % % (0.0-0.2) Absolute Neuts (auto) 2.37 10^3/uL 10^3/uL (1.70-6.50) Absolute Lymphs (auto) 3.06 10^3/uL H 10^3/uL (1.00-3.00) Absolute Monos (auto) 0.48 10^3/uL 10^3/uL (0.30-0.80) Absolute Eos (auto) 0.07 10^3/uL 10^3/uL (0.03-0.40) Absolute Basos (auto) 0.05 10^3/uL 10^3/uL (0.02-0.10) Absolute Nucleated RBC 0.00 10^3/uL 10^3/uL (0-0.01) Immature Gran % 0.2 % % (0.0-1.1) Immature Gran # 0.01 10^3/uL 10^3/uL (0.00-0.10) Sodium 143 mEq/L mEq/L (135-145) Potassium 4.1 mEq/L mEq/L (3.3-5.0) Chloride 110 mEq/L mEq/L (97-110) Carbon Dioxide 19 mEq/l L mEq/l (22-31) Anion Gap 14 mEq/L mEq/L (8-16) BUN 7 mg/dL mg/dL (7-23) Creatinine 1.0 mg/dL mg/dL (0.6-1.0) Estimated GFR > 60 Glucose 89 mg/dL mg/dL (70-100) Calcium 8.7 mg/dL mg/dL (8.5-10.4) Beta HCG, Qual NEGATIVE Medications Given: Discontinued Medications Diphenhydramine HCl (Benadryl Injection) 12.5 mg IVP EDNOW ONE Stop: 02/19/18 15:32 Last Admin: 02/19/18 15:47 Dose: 12.5 mg Sodium Chloride (Ns) 1,000 mls @ 0 mls/hr IV EDNOW ONE; Wide Open PRN Reason: Protocol Stop: 02/19/18 15:24 Last Admin: 02/19/18 15:46 Dose: 1,000 mls Sodium Chloride (Ns) 1,000 mls @ 0 mls/hr IV EDNOW ONE; Wide Open PRN Reason: Protocol Stop: 02/19/18 15:24 Last Admin: 02/19/18 15:47 Dose: 1,000 mls Ketorolac Tromethamine (Toradol) 30 mg IVP EDNOW ONE Stop: 02/19/18 15:32 Last Admin: 02/19/18 15:47 Dose: 30 mg Promethazine HCl (Phenergan) 12.5 mg IVP EDNOW ONE Stop: 02/19/18 15:34 Last Admin: 02/19/18 15:48 Dose: 12.5 mg Departure - Departure Disposition: Home, Routine, Self-Care Clinical Impression: Dehydration Condition: Good Instructions: Dehydration (ED) Additional Instructions: Easy activity. Regular eating and drinking. Phenergan if needed for nausea and vomiting. Return for worsening symptoms. Recheck 1-2 days if not continuing to improve Referrals: Albino Carranza MD [Primary Care Provider] - As per Instructions Stand Alone Forms: Work Excuse Prescriptions: Promethazine HCl [Phenergan 25mg (*)] 25 mg PO Q4-6PRN PRN #10 tab PRN Reason: Nausea/Vomiting, Use 1st
[2018-02-19] MEDS ORDERED: KETOROLAC 30 MG/1 ML SDV IVP ONE (15:31)
[2018-02-19] MEDS ORDERED: PROMETHAZINE HCL 25 MG/ML INJ IVP ONE (15:33)
[2018-02-19 15:47] LABS: PLATELET COUNT 383 10^3/uL (150-400)
[2018-02-19 19:11] VITALS: BP 111/62
== END 2018-02-19 19:11 | disposition home or self-care (01) ==
DX: J45.909 Unspecified asthma, uncomplicated (principal); E86.9 Volume depletion, unspecified; Z91.040 Latex allergy status
CPT/HCPCS: 96374; J1200; J1885; J2550

== ENCOUNTER 2019-01-10 01:06 | Emergency (ER) | payer OTHER ==
[2019-01-10 01:11] VITALS: BP 106/62
[2019-01-10] MEDS ORDERED: AMOXICILLIN/CLAVULANATE POT 875/125 MG TAB PO ONE (01:25)
--- NOTE | 2019-01-10 01:46 | EDPHY ---
H & P Time Seen by Provider: 01/10/19 01:20 HPI/ROS: Chief complaint: Dog bite to right hand History of present illness: This is a 23-year-old female who presents to the emergency department for a dog bite to her right hand. Her family's dogs got into a fight. One of them bit her on top of her right hand resulting in a single puncture wound. She reports pain. It hurts to move the 1st, 2nd and 3rd digits. No report of abnormal coolness or paresthesias in the hand. No other injuries. She is not sure if her tetanus is up-to-date. She is concerned because one of the medications she is on makes her immunocompromise and she is not sure if she can get a tetanus. She reports the dog is healthy. Smoking Status: Never smoked Physical Exam: General: Alert, nontoxic. Skin: A single puncture wound to the dorsum of the right hand over the 2nd metacarpal is noted. No foreign bodies appreciated. Musculoskeletal: She is flexing and extending all digits, all joints in all lam. She is moving the wrist in all lam. Vascular: Capillary refill brisk in all digits of the right hand. Radial pulse 2 +. Neurologic: Sensation intact in the right hand. Constitutional: Initial Vital Signs Temperature (C) 36.4 C 01/10/19 01:08 Heart Rate 99 01/10/19 01:08 Respiratory Rate 16 01/10/19 01:08 Blood Pressure 106/62 01/10/19 01:08 O2 Sat (%) 96 01/10/19 01:08 O2 Delivery Mode Room Air Allergies/Adverse Reactions: cephalexin [From Keflex] Allergy (Verified 01/10/19 01:11) infliximab [From Remicade] Allergy (Verified 01/10/19 01:11) Latex, Natural Rubber Allergy (Verified 01/10/19 01:11) Home Medications: Medication Instructions Recorded Bupropion HCl [Wellbutrin Xl] 300 mg PO HS 11/10/16 Escitalopram Oxalate [Lexapro] 30 mg PO HS 11/10/16 Omeprazole 40 mg PO HS 11/10/16 Topiramate 100 mg PO HS 11/10/16 traZODone [traZODONE 100MG (*)] 100 - 200 mg PO HS 11/10/16 ACTEMRA 07/27/17 Clonidine 07/27/17 Amoxicillin/Clavulanate Pot 875 mg PO BID #14 tab 01/10/19 [Augmentin 875 MG TAB (*)] MDM/Departure - MDM Imaging: I viewed and interpreted images myself Procedures: 3 cc of 1% lidocaine without epinephrine was instilled into the wound for pain control. Patient tolerated the procedure well. Medications Given: Discontinued Medications Amoxicillin/Clavulanate Potassium (Augmentin 875mg) 875 mg PO EDNOW ONE PRN Reason: Protocol Stop: 01/10/19 01:26 Last Admin: 01/10/19 01:32 Dose: 875 mg ED Course/Re-evaluation: Patient seen under the supervision of my secondary supervising physician Dr. Bryce Ziegler. Patient presents to the emergency department for a dog bite to her right hand. The right hand does appear to be neurovascularly intact. She does appear to be moving it well. X-rays obtained and negative. She is started on Augmentin and will be given a prescription for this. She has taken penicillins before without problems. She is to follow up with her doctor this week. She is asked to talk to her doctor about getting a tetanus in the setting of her medical problems. Return precautions are given. Differential Diagnosis: Included but not limited to animal bite, deep structure involvement, foreign body contamination - Depart Disposition: Home, Routine, Self-Care Clinical Impression: Dog bite Qualifiers: Encounter type: initial encounter Qualified Code(s): W54.0XXA - Bitten by dog, initial encounter Condition: Good Instructions: Animal Bite (ED), Puncture Wound (ED) Additional Instructions: Follow-up with your primary care doctor on Friday or Friday for recheck Please discussed with her primary care doctor if getting a tetanus shot is appropriate few given your medical history Take antibiotics as prescribed If symptoms worsen or new symptoms develop return to the emergency department for recheck Prescriptions: Amoxicillin/Clavulanate Pot [Augmentin 875 MG TAB (*)] 875 mg PO BID #14 tab Referrals: Dianna Man MD [Primary Care Provider] - As per Instructions
== END 2019-01-10 02:02 | disposition home or self-care (01) ==
DX: S61.431A Puncture wound without foreign body of right hand, initial encounter (principal); W54.0XXA Bitten by dog, initial encounter; Y93.K9 Activity, other involving animal care